=== PATIENT | female | born 1985 | race Caucasian/White ===

== ENCOUNTER 2017-12-25 12:17 | Emergency (ER) | payer MEDICAID, OTHER ==
[~2017-12-25] VITALS: Ht 157.5 cm; Wt 78.6 kg
[~2017-12-25 12:17] MED LIST: EMTR1TAB9 PO
[2017-12-25 12:19] VITALS: BP 132/65
[2017-12-25] MEDS ORDERED: KETOROLAC 30 MG/1 ML IM ONE (13:00)
[2017-12-25] MEDS ORDERED: GABA-827 PO (13:04)
[2017-12-25] MEDS ORDERED: IBUP-1623 PO (13:05)
[2017-12-25] MEDS ORDERED: KETOROLAC 30 MG/1 ML ONE (13:57)
== END 2017-12-25 14:02 | disposition home or self-care (01) ==
LOC: ED 13:55
DX: S93.492A Sprain of other ligament of left ankle, initial encounter (principal); Z21 Asymptomatic human immunodeficiency virus [HIV] infection status; X50.1XXA Overexertion from prolonged static or awkward postures, initial encounter; Y93.89 Activity, other specified; Y92.89 Other specified places as the place of occurrence of the external cause; Y99.8 Other external cause status
CPT/HCPCS: 73610; 96372; 99284; J1885

== ENCOUNTER 2018-04-12 14:40 | Emergency (ER) | payer MEDICAID ==
[~2018-04-12] VITALS: Ht 157.5 cm; Wt 85.0 kg
[~2018-04-12 14:40] MED LIST changes: +GABA-827 PO; +IBUP-1623 PO
[2018-04-12 15:51] LABS: BASOPHILS # (AUTO) 0.07 x10^3/uL (0-0.1); BASOPHILS % (AUTO) 0 % (0-1); EOSINOPHILS # (AUTO) 0.12 x10^3/uL (0-0.4); EOSINOPHILS % (AUTO) 1 % (1-7); LYMPHOCYTES # (AUTO) 1.77 x10^3/uL (1-3.4); LYMPHOCYTES % (AUTO) 11 % (22-44); MD NO; MEAN CORPUSCULAR HEMOGLOBIN 30.8 pg (27.0-34.8); MEAN CORPUSCULAR VOLUME 90.8 fL (80-100); MEAN PLATELET VOLUME 8.1 fL (7.4-10.4); MONOCYTES # (AUTO) 0.73 x10^3/uL (0.2-0.8); MONOCYTES % (AUTO) 5 % (2-9); NEUTROPHILS # (AUTO) 13.48 x10^3/uL (1.8-6.8); NEUTROPHILS % (AUTO) 83 % (42-75); PLATELET COUNT 297 x10^3/uL (130-400); RED BLOOD COUNT 4.42 x10^6/uL (3.82-5.3); RED CELL DISTRIBUTION WIDTH 12.9 % (9.6-15.2)
[2018-04-12 16:00] LABS: ALBUMIN 3.2 g/dL (3.4-5.0); ANION GAP 6 mmol/L (5-15); CALCIUM 8.7 mg/dL (8.5-10.1); CHLORIDE 106 mmol/L (98-107); CREATININE 0.59 mg/dL (0.55-1.02)
--- NOTE | 2018-04-12 16:38 | NUR ---
RME: pt needs IV for CT scan. IV placed per order. blanket and bear warmer given for comfort.
--- NOTE | 2018-04-12 17:20 | NUR ---
pt in ct now.
[2018-04-12 17:22] VITALS: BP 128/86
[2018-04-12] MEDS ORDERED: OMNIPAQUE 350 MG/ML, 100ML BOTTLE ONE (17:42)
[2018-04-12] MEDS ORDERED: DEXAMETHASONE 4 MG/ML, 1ML ONE (18:41)
[2018-04-12] MEDS ORDERED: ONDANSETRON ODT 4 MG ONE (18:47)
[2018-04-12] MEDS ORDERED: DEXAMETHASONE 4 MG/ML, 1ML PO ONE (19:00)
[2018-04-12] MEDS ORDERED: ONDANSETRON ODT 4 MG PO ONE (19:00)
== END 2018-04-12 19:21 | disposition home or self-care (01) ==
LOC: ED 19:15
DX: R51 Headache (principal); D72.829 Elevated white blood cell count, unspecified; J02.9 Acute pharyngitis, unspecified; Z87.891 Personal history of nicotine dependence
CPT/HCPCS: 36415; 70487; 80048; 82040; 84703; 85025; 99284; J1100; Q0162; Q9967

== ENCOUNTER 2018-06-21 17:18 | Emergency (ER) | payer MEDICAID ==
[~2018-06-21] VITALS: Ht 157.5 cm; Wt 85.1 kg
[2018-06-21 18:02] VITALS: BP 111/77
[2018-06-21] MEDS ORDERED: IBUPROFEN 800 MG TABLET PO STA (18:11)
[2018-06-21] MEDS ORDERED: ONDANSETRON ODT 4 MG PO ONE (18:30)
[2018-06-21 18:35] LABS: RAPID INFLUENZA A Negative (Negative); RAPID INFLUENZA B Negative (Negative)
[2018-06-21] MEDS ORDERED: ONDANSETRON ODT 4 MG ONE (18:51)
[2018-06-21] MEDS ORDERED: IBUPROFEN 200 MG TABLET ONE (18:51)
[2018-06-21 19:08] LABS: HCG UR SG 1.024 (1.003-1.030)
[2018-06-21 19:10] LABS: CULTURE INDICATED? YES; MICROSCOPIC INDICATED
== END 2018-06-21 20:19 | disposition home or self-care (01) ==
LOC: ED 19:34
DX: B34.9 Viral infection, unspecified (principal); M79.10 Myalgia, unspecified site; F17.200 Nicotine dependence, unspecified, uncomplicated; Z21 Asymptomatic human immunodeficiency virus [HIV] infection status
CPT/HCPCS: 71046; 81001; 81025; 87077; 87081; 87086; 87186; 87400; 87880; 99284; Q0162

== ENCOUNTER 2019-02-18 19:05 | Emergency (ER) | payer MEDICAID ==
[~2019-02-18] VITALS: Ht 157.5 cm; Wt 87.3 kg
[2019-02-18 19:07] VITALS: BP 132/77
--- NOTE | 2019-02-18 20:20 | NUR ---
PT IN BED AT THIS TIME. PT WITH FAMILY. NO WANTS OR NEEDS AT THIS TIME.
== END 2019-02-18 21:41 | disposition home or self-care (01) ==
LOC: ED 21:13
DX: M25.572 Pain in left ankle and joints of left foot (principal); G89.29 Other chronic pain; X50.1XXA Overexertion from prolonged static or awkward postures, initial encounter; Y93.89 Activity, other specified; Y92.009 Unspecified place in unspecified non-institutional (private) residence as the place of occurrence of the external cause; Y99.8 Other external cause status
CPT/HCPCS: 29515; 99283

== ENCOUNTER 2019-03-12 18:29 | Emergency (ER) | payer MEDICAID ==
[~2019-03-12] VITALS: Ht 157.5 cm; Wt 89.4 kg
[2019-03-12 18:32] VITALS: BP 102/72
== END 2019-03-12 20:00 | disposition home or self-care (01) ==
LOC: ED 19:59
DX: J01.10 Acute frontal sinusitis, unspecified (principal); J01.00 Acute maxillary sinusitis, unspecified; B96.89 Other specified bacterial agents as the cause of diseases classified elsewhere
CPT/HCPCS: 71046; 99283

== ENCOUNTER 2019-04-17 02:01 | Emergency (ER) | payer MEDICAID ==
[~2019-04-17] VITALS: Ht 157.5 cm; Wt 88.5 kg
--- NOTE | 2019-04-17 02:22 | NUR ---
Pt presents to ed c/o abd pain "like my tummy is in a knot" since 0830 yesterday. "i am only puking because of the pain." Pt denies any abd hx or recent hospitalization. States still passing bm and able to tolerate po intake, excluding 2 rounds of emesis.
[2019-04-17] MEDS ORDERED: ONDANSETRON 2MG/ML, 2ML ONE (02:29)
[2019-04-17] MEDS ORDERED: ONDANSETRON 2MG/ML, 2ML IVPush ONE (02:30)
[2019-04-17] MEDS ORDERED: MORPHINE SULFATE 4 MG/ML, 1ML ONE ×2 (02:30→03:34)
[2019-04-17] MEDS: MORPHINE SULFATE 4 MG/ML, 1ML IVPush PRN ×2 (02:37→03:55)
--- NOTE | 2019-04-17 03:03 | NUR ---
Pt prompted for urine and states unable to produce a sample at this time.
[2019-04-17 03:15] LABS: BASOPHILS # (AUTO) 0.05 x10^3/uL (0-0.1); BASOPHILS % (AUTO) 0 % (0-1); EOSINOPHILS # (AUTO) 0.17 x10^3/uL (0-0.4); EOSINOPHILS % (AUTO) 1 % (1-7); LYMPHOCYTES # (AUTO) 2.19 x10^3/uL (1-3.4); LYMPHOCYTES % (AUTO) 16 % (22-44); MD NO; MEAN CORPUSCULAR HEMOGLOBIN 29.5 pg (27.0-34.8); MEAN CORPUSCULAR HGB CONC 33.9 g/dL (32.4-35.8); MEAN CORPUSCULAR VOLUME 86.8 fL (80-100); MONOCYTES # (AUTO) 0.46 x10^3/uL (0.2-0.8); MONOCYTES % (AUTO) 3 % (2-9); NEUTROPHILS # (AUTO) 11.27 x10^3/uL (1.8-6.8); NEUTROPHILS % (AUTO) 80 % (42-75); PLATELET COUNT 327 x10^3/uL (130-400); RED CELL DISTRIBUTION WIDTH 14.3 % (9.6-15.2)
[2019-04-17 03:17] LABS: ALANINE AMINOTRANSFERASE 24 U/L (12-78); ANION GAP 7 mmol/L (5-15); CALCIUM 8.3 mg/dL (8.5-10.1); CHLORIDE 107 mmol/L (98-107); CREATININE 0.63 mg/dL (0.55-1.02)
[2019-04-17 03:21] LABS: ALKALINE PHOSPHATASE 93 U/L (45-117); BILIRUBIN,TOTAL 0.2 mg/dL (0.2-1.0); TOTAL PROTEIN 7.3 g/dL (6.4-8.2)
[2019-04-17] MEDS ORDERED: OMNIPAQUE 350 MG/ML, 100ML BOTTLE ONE (03:38)
--- NOTE | 2019-04-17 03:56 | NUR ---
pt ambulated to br with steady gait, medicated for returning abd pain, vss
[2019-04-17 04:15] LABS: MICROSCOPIC AUTO
[2019-04-17 04:16] LABS: CULTURE INDICATED? YES
[2019-04-17] MEDS ORDERED: KETOROLAC 30 MG/1 ML IVPush ONE (05:00)
[2019-04-17] MEDS ORDERED: KETOROLAC 30 MG/1 ML ONE (05:06)
[2019-04-17 05:12] VITALS: BP 132/88
== END 2019-04-17 05:28 | disposition home or self-care (01) ==
LOC: ED 05:21
DX: N30.00 Acute cystitis without hematuria (principal); N83.292 Other ovarian cyst, left side; R10.84 Generalized abdominal pain
CPT/HCPCS: 36415; 74177; 80053; 81001; 83690; 84703; 85025; 87077; 87086; 87186; 96374; 96375; 96376; 99284; J1885; J2270; J2405; Q9967

== ENCOUNTER 2019-06-10 03:05 | Emergency (ER) | payer MEDICAID ==
[~2019-06-10] VITALS: Ht 157.5 cm; Wt 89.0 kg
[2019-06-10 03:12] VITALS: BP 147/91
[2019-06-10] MEDS ORDERED: PROPARACAINE OPHTH 0.5%, 15ML RIGHTEYE STA (03:17)
[2019-06-10] MEDS ORDERED: FLUORESCEIN OPHTHALMIC 1 MG STRIP ONE (03:20)
[2019-06-10] MEDS ORDERED: PROPARACAINE OPHTH 0.5%, 15ML ONE (03:20)
[2019-06-10] MEDS ORDERED: POLYTRIM OPHTH 10ML RIGHTEYE STA (03:27)
[2019-06-10] MEDS ORDERED: FLUORESCEIN OPHTHALMIC 1 MG STRIP RIGHTEYE ONE (03:30)
== END 2019-06-10 03:43 | disposition home or self-care (01) ==
LOC: ED 03:20
DX: H18.821 Corneal disorder due to contact lens, right eye (principal)
CPT/HCPCS: 99283

== ENCOUNTER 2019-07-24 21:59 | Emergency (ER) | payer MEDICAID ==
[~2019-07-24] VITALS: Ht 157.5 cm; Wt 91.0 kg
[2019-07-24 22:02] VITALS: BP 115/79
== END 2019-07-24 23:14 | disposition home or self-care (01) ==
LOC: ED 22:53
DX: J01.00 Acute maxillary sinusitis, unspecified (principal); J01.10 Acute frontal sinusitis, unspecified; H92.03 Otalgia, bilateral; R51 Headache; J02.9 Acute pharyngitis, unspecified; Z21 Asymptomatic human immunodeficiency virus [HIV] infection status
CPT/HCPCS: 99283

== ENCOUNTER 2020-03-01 21:34 | Emergency (ER) | payer MEDICAID ==
[~2020-03-01] VITALS: Ht 160 cm; Wt 97.8 kg
--- NOTE | 2020-03-02 00:46 | NUR ---
pt called to room from lobby
--- NOTE | 2020-03-02 00:53 | NUR ---
ptwheeled back to room from lobby, pt friend at pt side. pt has c/o possible sinus infection with headache and runny nose for a week.
--- NOTE | 2020-03-02 00:56 | NUR ---
RECEIVED REPORT FROM NAM WILHELM TO ASSUME CARE OF PT. AT THIS TIME. DR. MCNAIR AT TO EVAL AND DISCUSS POC.
[2020-03-02] MEDS ORDERED: PROCHLORPERAZINE 5 MG/ML, 2ML IM ONE (01:00)
[2020-03-02] MEDS ORDERED: KETOROLAC 30 MG/1 ML IM ONE (01:00)
[2020-03-02] MEDS ORDERED: KETOROLAC 30 MG/1 ML ONE (01:12)
[2020-03-02] MEDS ORDERED: PROCHLORPERAZINE 5 MG/ML, 2ML ONE (01:12)
[2020-03-02 02:06] VITALS: BP 122/76
== END 2020-03-02 02:07 | disposition home or self-care (01) ==
LOC: ED 03-02 02:03
DX: R51.9 Headache, unspecified (principal); R09.81 Nasal congestion; H92.03 Otalgia, bilateral; R42 Dizziness and giddiness; J02.9 Acute pharyngitis, unspecified
CPT/HCPCS: 96372; 99284; J0780; J1885

== ENCOUNTER 2020-05-04 15:36 | Emergency (ER) | payer MEDICAID ==
[~2020-05-04] VITALS: Ht 160 cm; Wt 98.2 kg
[2020-05-04] MEDS ORDERED: GABA600T7 PO (15:48)
[2020-05-04] MEDS ORDERED: DULO30CA2 PO (15:48)
[2020-05-04] MEDS ORDERED: ONDANSETRON ODT 4 MG ONE (16:21)
--- NOTE | 2020-05-04 16:23 | NUR ---
PT COMES IN C/O VOMITING MULTIPLE TIMES FOLLOWING "INHALING BUG SPRAY". PT STATES SHE WAS AT WORK WHEN A COWORKER SPRAYED BUG SPRAY WHILE NEXT TO HER AND SHE INHALED. IT. PT STATES VOMITING BEGAN APPROX 15 MINUTES AFTER EXPOSURE. PT ACTIVELY VOMITING ON ASSESSMENT. PT STATES CHEST TIGHTNESS, SOB, BURNING AROUND EYES AND MOUTH. MONITORS CONNECTED. EKG COMPLETE.
[2020-05-04] MEDS ORDERED: ONDANSETRON ODT 4 MG PO ONE (16:30)
--- NOTE | 2020-05-04 16:30 | NUR ---
PT UP TO SINK TO RINSE EYES AND MOUTH WITH WARM WATER PER MD
[2020-05-04 17:21] VITALS: BP 140/94
[2020-05-04] MEDS ORDERED: DEXAMETHASONE 4 MG TABLET ONE ×2 (17:43→17:57)
[2020-05-04] MEDS ORDERED: DEXAMETHASONE 4 MG TABLET PO ONE (18:00)
--- NOTE | 2020-05-04 18:05 | NUR ---
PT AMBULATED TO DISCHARGE WITH STEADY GAIT. PT ENCOURAGED TO FOLLOWUP DISCUSSED. PT EDUCATED TO RETURN TO THE ED WITH WORSENING SYMPTOMS. RX GIVEN TO PT.
== END 2020-05-04 18:08 | disposition home or self-care (01) ==
LOC: ED 16:09
DX: J18.9 Pneumonia, unspecified organism (principal); R06.00 Dyspnea, unspecified; R11.0 Nausea; R00.0 Tachycardia, unspecified; Z21 Asymptomatic human immunodeficiency virus [HIV] infection status
CPT/HCPCS: 71045; 93005; 99283; Q0162

== ENCOUNTER 2020-07-28 15:02 | Emergency (ER) | payer MEDICAID ==
[~2020-07-28] VITALS: Ht 160 cm; Wt 93.3 kg
[~2020-07-28 15:02] MED LIST changes: +DULO30CA2 PO; +GABA600T7 PO
[2020-07-28 15:19] VITALS: BP 130/91
--- NOTE | 2020-07-28 16:58 | NUR ---
PRECEPTOR NOTE: PT SEEN AND EXAMINED BY BILL CLAYTON. PER MD PT DOES NOT NEED EKG OR MONTIOR, DC ORDERS RECEIVED. PT GIVEN DC INSTRUCTIONS AND SCRIPT, EDUCATED REGARDING RX FOR AUGMENTIN. PT A&O, RESPS EVEN AND UNLABORED. PT AMBULATORY TO DC DESK WITH STEADY GAIT. ALL QUESTIONS ANSWERED.
== END 2020-07-28 16:58 | disposition home or self-care (01) ==
LOC: ED 16:35
DX: J01.11 Acute recurrent frontal sinusitis (principal); B96.6 Bacteroides fragilis [B. fragilis] as the cause of diseases classified elsewhere; R19.7 Diarrhea, unspecified; R09.81 Nasal congestion
CPT/HCPCS: 99283

== ENCOUNTER 2020-09-11 14:07 | Emergency (ER) | payer MEDICAID ==
[~2020-09-11] VITALS: Ht 160 cm; Wt 90.6 kg
--- NOTE | 2020-09-11 16:22 | NUR ---
NIL [phone]
--- NOTE | 2020-09-11 17:39 | NUR ---
VS RECHECKED IN TRIAGE. ICE PACK PROVIDED. PT OFFERED TYLENOL/IBUPROFEN FOR PAIN WHICH PT DECLINED.
--- NOTE | 2020-09-11 17:40 | NUR ---
SAMPLE DISPLAY PREPARER: PT TO ROOM FROM LOBBY
[2020-09-11] MEDS ORDERED: METHOCARBAMOL 750 MG TABLET PO ONE (18:30)
[2020-09-11] MEDS ORDERED: KETOROLAC 30 MG/1 ML IM ONE (18:30)
[2020-09-11] MEDS ORDERED: ACETAMINOPHEN 325 MG TABLET PO ONE (18:30)
[2020-09-11] MEDS ORDERED: KETOROLAC 30 MG/1 ML ONE (19:23)
[2020-09-11] MEDS ORDERED: ACETAMINOPHEN 325 MG TABLET ONE (19:23)
[2020-09-11] MEDS ORDERED: METHOCARBAMOL 750 MG TABLET ONE (19:23)
[2020-09-11 19:51] VITALS: BP 126/77
--- NOTE | 2020-09-11 19:52 | NUR ---
TASK RN: Patient given discharge instructions and they have confirmed that they understand the instructions. Patient ambulatory with steady gait. NAD, all questions answered appropriately, denies additional needs at this time. No personal belongings left in room after discharge. PROVIDED NEW ICE PACK FOR DC
== END 2020-09-11 19:53 | disposition home or self-care (01) ==
LOC: ED 17:02
DX: S29.012A Strain of muscle and tendon of back wall of thorax, initial encounter (principal); S63.521A Sprain of radiocarpal joint of right wrist, initial encounter; X50.9XXA Other and unspecified overexertion or strenuous movements or postures, initial encounter; Y93.89 Activity, other specified; Y92.830 Public park as the place of occurrence of the external cause; Y99.8 Other external cause status
CPT/HCPCS: 29125; 72072; 73030; 73090; 73110; 96372; 99284; J1885

== ENCOUNTER 2020-11-27 04:30 | Emergency (ER) | payer MEDICAID ==
[~2020-11-27] VITALS: Ht 160 cm; Wt 84.0 kg
[2020-11-27 04:49] VITALS: BP 113/78
--- NOTE | 2020-11-27 07:14 | NUR ---
Patient not in lobby at this time
--- NOTE | 2020-11-27 07:21 | NUR ---
FRONT DESK ADMIN: CALLED NO ANSWER
--- NOTE | 2020-11-27 07:30 | NUR ---
HUMAN SERVICES SUPERVISOR: CALLED PT NO ANSWER
== END 2020-11-27 07:31 | disposition left against medical advice (07) ==
LOC: ED 07:25
DX: Z53.21 Procedure and treatment not carried out due to patient leaving prior to being seen by health care provider (principal)